=== PATIENT | male | born 1965 | race Native Hawaiian/Other Pacific Islander ===

== ENCOUNTER 2018-09-28 17:16 | Emergency (ER) | payer OTHER ==
--- NOTE | 2018-09-28 18:52 | XRay Report ---
PROCEDURE: XR KNEE 3V RT TECHNIQUE: Right knee 3 views HISTORY: knee pain COMPARISONS: FINDINGS: Small joint effusion. No acute fracture identified. Joint spaces are within normal limits. IMPRESSION: Small joint effusion . This document is electronically signed by José Eubanks MD., September 28 2018 06:50:38 PM ET
--- NOTE | 2018-09-28 20:28 | Emergency Department Report ---
ED Extremity Problem HPI - General Chief complaint: Extremity Injury, Lower Stated complaint: RT KNEE PAIN Time Seen by Provider: 09/28/18 19:56 Source: patient, family Mode of arrival: Wheelchair Limitations: Language Barrier - History of Present Illness Initial comments: Patient is a 52-year-old male presents to the emergency room with complaints of right knee edema and mild pain that began 20 days ago. The daughter states the swelling has resolved some. She states he only feels the discomfort with ambulating. He denies any fall, injury, trauma, numbness, or weakness. He has never injured before. He does not have an orthopedic doctor or primary care doctor. He has not been using anything for the discomfort. He denies any past medical history, daily medications, or allergies to medications. nauruan interpretation by daughter - Related Data Previous Rx's Medication Instructions Recorded Last Taken Type Ibuprofen [Motrin 800 MG tab] 800 mg PO Q8HR PRN #20 tablet 09/28/18 Unknown Rx Allergies Allergy/AdvReac Type Severity Reaction Status Date / Time No Known Allergies Allergy Unverified 09/28/18 17:19 ED Review of Systems ROS: Stated complaint: RT KNEE PAIN Other details as noted in HPI Comment: All other systems reviewed and negative ED Past Medical Hx - Past Medical History Previous Medical History?: No - Surgical History Past Surgical History?: No - Social History Smoking Status: Never Smoker - Medications Home Medications: Home Medications Medication Instructions Recorded Confirmed Last Taken Type Ibuprofen [Motrin 800 MG tab] 800 mg PO Q8HR PRN #20 tablet 09/28/18 Unknown Rx ED Physical Exam - General Limitations: Language Barrier General appearance: alert, in no apparent distress - Head Head exam: Present: atraumatic, normocephalic - Eye Eye exam: Present: normal appearance, PERRL - ENT ENT exam: Present: mucous membranes moist - Extremities Exam Extremities exam: Present: other (trace amount of edema to the right knee, mild TTP over the right, medial knee, FROM of the right knee without difficulty, no erythema, no increased warmth, no obvious joint laxity, no deformity, 2+ distal pulses, sensation intact) - Neurological Exam Neurological exam: Present: alert, oriented X3 - Psychiatric Psychiatric exam: Present: normal affect, normal mood - Skin Skin exam: Present: warm, dry, intact ED Course Vital Signs 09/28/18 09/28/18 17:23 20:44 Temperature 98.1 F Pulse Rate 76 78 Respiratory 18 16 Rate Blood Pressure 144/86 Blood Pressure 122/71 [Left] O2 Sat by Pulse 99 99 Oximetry ED Medical Decision Making - Lab Data Vital Signs 09/28/18 09/28/18 17:23 20:44 Temperature 98.1 F Pulse Rate 76 78 Respiratory 18 16 Rate Blood Pressure 144/86 Blood Pressure 122/71 [Left] O2 Sat by Pulse 99 99 Oximetry - Radiology Data Radiology results: report reviewed Ordering Physician: LUCY SHIELDS MD Date of Service: 09/28/18 Procedure(s): XR knee 3V RT Accession Number(s): [id number] cc: ED MD CORNELIUS Fluoro Time In Minutes: PROCEDURE: XR KNEE 3V RT TECHNIQUE: Right knee 3 views HISTORY: knee pain COMPARISONS: FINDINGS: Small joint effusion. No acute fracture identified. Joint spaces are within normal limits. IMPRESSION: Small joint effusion . This document is electronically signed by José Zeng MD., September 28 2018 06:50:38 PM ET Transcribed By: ANTONIA Dictated By: VELIA ZENG MD Electronically Authenticated By: VELIA ZENG MD Signed Date/Time: 09/28/18 0882 - Medical Decision Making Patient is a 52-year-old male presents to the emergency room with complaints of right knee edema and mild pain that began 20 days ago. The daughter states the swelling has resolved some. She states he only feels the discomfort with ambulating. He denies any fall, injury, trauma, numbness, or weakness. He has never injured before. He does not have an orthopedic doctor or primary care doctor. He has not been using anything for the discomfort. He denies any past medical history, daily medications, or allergies to medications. on exam: trace amount of edema to the right knee, mild TTP over the right, medial knee, FROM of the right knee without difficulty, no erythema, no increased warmth, no obvious joint laxity, no deformity, 2+ distal pulses, sensation intact. XR of the right knee with small joint effusion otherwise normal. patient has full range of motion of the knee without difficulty, joint effusion is not large enough for arthrocentesis. will have pt follow-up with Dr. Varner, orthopedics next 2-3 days. Discussed with patient rest, ice, elevation, compression. baldemar wrap placed to the left knee and advised to use as needed. pt given anti-inflammatory. Advised to take medication as prescribed. Return to the emergency room for any new or worsening symptoms. nauruan interpretation by daughter - Differential Diagnosis strain, sprain, fx, dislocation, knee effusion, arthritis Critical care attestation.: If time is entered above; I have spent that time in minutes in the direct care of this critically ill patient, excluding procedure time. ED Disposition Clinical Impression: Effusion, right knee Right knee pain Qualifiers: Chronicity: acute Qualified Code(s): M25.561 - Pain in right knee Disposition: TO HOME OR SELFCARE Is pt being admited?: No Does the pt Need Aspirin: No Condition: Stable Instructions: Knee Effusion (ED), Arthralgia (ED) Additional Instructions: Please follow-up with Dr. Varner, orthopedics next 2-3 days. May use rest, ice, elevation, compression. use baldemar wrap to the knee as needed. take medication as prescribed as needed. Return to the emergency room for any new or worsening symptoms. Prescriptions: Ibuprofen [Motrin 800 MG tab] 800 mg PO Q8HR PRN #20 tablet PRN Reason: Pain, Moderate (4-6) Referrals: [facility]RISTOP[facility] MD BUDDY [Primary Care Provider] - 2-3 Days JODEE VARNER MD [Staff Physician] - 2-3 Days Time of Disposition: 20:30 Print Language: TELUGU
[2018-09-28 20:44] VITALS: BP 122/71
== END 2018-09-28 20:44 | disposition home or self-care (01) ==
LOC: ED 17:16
DX: M25.461 Effusion, right knee (principal); M25.561 Pain in right knee